=== PATIENT | female | born 1990 | race African-American/Black ===

== ENCOUNTER 2018-02-12 20:10 | Emergency (ER) | payer OTHER ==
[2018-02-12 20:32] VITALS: BP 120/50; PULSE 65; TEMP 98; BMI 30.1
[2018-02-12] MEDS ORDERED: KETOROLAC TROMETHAMINE 60 MG/2 ML VIAL IM ONE (22:29)
[2018-02-12] MEDS ORDERED: KETOROLAC TROMETHAMINE 60 MG/2 ML VIAL ONE (22:31)
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
== END 2018-02-12 22:33 | disposition home or self-care (01) ==
LOC: JERFT 20:10
PROC: 3E0233Z Introduction of Anti-inflammatory into Muscle, Percutaneous Approach (ICD-10-PCS; principal; 2018-02-12)
DX: S16.1XXA Strain of muscle, fascia and tendon at neck level, initial encounter (principal); V43.52XA Car driver injured in collision with other type car in traffic accident, initial encounter; Y92.488 Other paved roadways as the place of occurrence of the external cause; Y93.89 Activity, other specified; Y99.8 Other external cause status
CPT/HCPCS: 99281-25